=== PATIENT | female | born 1965 | race Caucasian/White ===

== ENCOUNTER 2022-03-01 11:28 | Emergency (ER) | payer BC ==
[2022-03-01] MEDS ORDERED: Acetaminophen/HYDROcodone 325-10 MG Tab PO ONE (11:29)
[2022-03-01 11:44] VITALS: BP 132/80; PULSE 72
[2022-03-01] MEDS ORDERED: Acetaminophen/HYDROcodone 325-10 MG Tab ONE (12:37)
== END 2022-03-01 12:45 | disposition home or self-care (01) ==
LOC: DL.ED 11:28
DX: S52.571A Other intraarticular fracture of lower end of right radius, initial encounter for closed fracture (principal); Z79.899 Other long term (current) drug therapy; Z88.2 Allergy status to sulfonamides; Z90.710 Acquired absence of both cervix and uterus; W21.09XA Struck by other hit or thrown ball, initial encounter
CPT/HCPCS: 29125; 73110; 99283; A9270; 99284